=== PATIENT | female | born 1955 ===

== ENCOUNTER 2025-05-09 09:44 | Outpatient (AMB) | payer MEDICARE, OTHER, SELFPAY ==
--- OUTSIDE RECORDS SUMMARY | 2025-05-09 10:43 | XMS_ITS | Continuity of Care Document ---
Author Name [facility] Organization [facility] Care Team Providers Care Sky Diver Name Role Phone [facility] Unavailable Unavailable Immunizations Combined list of available immunizations from the Department of Defense and Veterans Affairs facilities. Immunization Series Date Given Administered By Site Reaction Lot Number CVX Code Drug Acquisitions Assistant Status Comments Source zoster recombinant 2023 () Not Given zoster recombina nt DoD COVID-19, mRNA, LNP-S, PF, 30 mcg/0.3 mL dose, otto-sucrose 2021 AFOLALU, () Not Given COVID-19, mRNA, LNP-S, PF, 30 mcg/0.3 mL dose, otto-sucr ose [facility] Influenza vaccine, quadrivalent, adjuvanted 2020 GLADIS, () Not Given Influenza vaccine, quadrival ent, adjuvante d [facility] pneumococcal polysaccharid e PPV23 2020 GALLEGO, () Not Given pneumococ lidya polysacch aride PPV23 [facility] influenza, high-dose, quadrivalent 2019 TRIGENIS, () Not Given influenza , high-dose , quadrival ent [facility] Social History Combined list of available smoking, tobacco, and other social history from Department of Defense and Veterans Affairs facilities. Social History Type Response Date Comment Sourc e This section is an empty social history section. DoD
--- OUTSIDE RECORDS SUMMARY | 2025-05-09 10:45 | XMS_ITS | Clinical Summary ---
Author Organization [facility] Address [address] [place] [address] Care Team Providers Care Meter Record Clerk Name Role Phone Meagan Drake RN Unavailable [phone] Pcp, No Primary Care Provider Unavailabl e Immunizations Immunization Administration Dates Next Due Covid-19 MRNA Vaccine - Pfiz er 12+ (Purple Cap) 06/27/2021,11/15/2020,10/25/2020 Social History Tobacco Use Types Packs/Day Years Used Date Smoking Tobacco: Never Assessed Comments Unknown Sex and Gender Information Value Date Recorded Sex Assigned at Not on file Legal Sex Female 6:18 PM EST Gender Identity Female 10/18/2020 6:25 PM EST Sexual Orientation Heterosexual (straight) 10/18 6:25 PM EST Plan of Treatment Health Maintenance Due Date Last Done Comments Advance Care Planning 1955 Hepatitis C Virus Screening 1955 DTaP/Tdap/Td Vaccines (1 - Tdap) 1973 Mammogram 1994 Colonoscopy 1999 Pneumococcal Vaccines 50+ (1 of 1 - PCV) 2004 Zoster (Shingles) Vaccine (1 of 2) 2004 DXA Bone Density (Females,Ages 65 and older) 2019 COVID-19 Vaccine (4 - 2023-2 5 season) 2024 06/27/2021, 11/15/2020, 10/25/2020 Influenza Vaccine 04/06/2025 07/20/2019 RSV Vaccine 60 years and older and Patients (1 - 1-dose 75+ series) 2029 Hepatitis B Vaccines Aged Out No long er eligible based on patient's age to complete this topic Insurance MEDICARE PART A & B [facility] Care Teams Meter Record Clerk Relationship Specialty Start Date End Date Pcp, No PCP - General General Medicine 04/27/22 Meagan Drake RN [address] [place] [address] Oncology Nurse Navigator 04/22/22
--- OUTSIDE RECORDS SUMMARY | 2025-05-09 10:45 | XMS_ITS | Clinical Summary ---
Author Organization [facility] Address [address] [facility] [place] [address] Care Team Providers Care Doctor Of Dental Surgery Name Role Phone Chelsey Moeller Primary Care Provider [phone] Allergies Active Allergy Reactions Criticality Noted Date Comments Adhesive Tape-Silicones Medium 03/01/2018 Other reaction(s): Other (See Comments) Paper tape and bandaids cause hives per pt Amoxicillin Clarithromycin Nausea And Vomiting Medium 06/01/2017 Erythromycin 12/29/2021 Other reaction(s): Other (See Comments) Sulfa (Sulfonamide Antibiotics) Hives Medium 02/12/2015 Medications alendronate (FOSAMAX) 70 mg tablet Take 70 mg by mouth every 7 days. 06/27/2020 Active ciprofloxacin (CIPRO) 500 mg tablet Active nitrofurantoin (MACRODANTIN) 100 mg capsule Activ e Lactobacillus acidophilus (PROBIOTIC ORAL) Take 1 capsule by mouth daily. Active cholecalciferol (VITAMIN D-3) 25 mcg (1,000 unit) tablet Take 1,000 Units by mouth daily. Active cyanocobalamin (VITAMIN B-12) 100 mcg tablet Take 0.5 tablets (50 mcg total) by mouth 1 (one) time each day. Active calcium carbonate (HIGH POTENCY CALCIUM PO) Take 1 tablet by mouth 1 (one) time each day. Active Active Problems Problem Noted Date Diagnosed Date Urinary tract infection 06/06/2022 Atypical nevi 09/08/2020 Osteoporosis 07/08/2019 Overview (10/09/2022): Followed by Andrzej. 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 ([facility] V24, [facility] V28) 05/30/2015 Encounters Date Type Department Care Team Description 05/01/2025 7:39 AM EDT - 05/01/2025 11:59 PM EDT Hospital Encounter [facility] [address] [place] [address] Malignant neoplasm of bladder, unspecified ([facility] V24, [facility] V28) Discharge Disposition: Home or Self Care from Last 3 Months Immunizations Name Administration Dates Next Due Influenza Quadrivalent, 0.5m l, preservative free (Fluarix; FluLaval; Fluzone) ages 6mo and older (Afluria) 3yo and older 07/20/2019 Pfizer (ages 12 & older) FRANK S-CoV-2 COVID-19, mRNA, LNP-S, otto-sucrose, preservative free 01/28/2022 Pfizer SARS-CoV-2 COVID-19, mRNA, LNP-S, preservative free 06/27/2021,11/15/2020,10/25/2020 Pneumococcal polysaccharide 23 valent (Pneumovax 23) 2yo and older 09/17/2020 Tdap Tetanus diptheria acell ular pertussis (Boostrix; Adacel) 7yo and older 11/02/2018 Surgical History Surgery Date Site/Laterality Comments BLADDER SURGERY PROCEDURE:BLADDER SURGERY OTHER SURGICAL HISTORY PROCEDURE:ruptured bladder HYSTERECTOMY PROCEDURE:HYSTERECTOMY TONSILLECTOMY PROCEDURE:TONSILLECTOMY COLONOSCOPY PROCEDURE:COLONOSCOPY ENDOMETRIAL ABLATION 01/2006 PROCEDURE:ENDOMETRIAL ABLATION;COMMENT:DUB BLADDER TUMOR EXCISION 11/09/2018 N/A PROCEDURE:BLADDER TUMOR EXCISION;COMMENT:Procedure: TRANSURETHRAL RESECTION BLADDER TUMOR; Surgeon: Марина Will MD; Location: [facility]; Service: Urology; Laterality: N/A; BLADDER TUMOR EXCISION 03/02/2018 N/A PROCEDURE:BLADDER TUMOR EXCISION;COMMENT:Procedure: TRANSURETHRAL RESECTION BLADDER TUMOR; Surgeon: Марина Will MD; Location: [facility]; Service: Urology; Laterality: N/A; BLADDER TUMOR EXCISION 06/30/2017 N/A PROCEDURE:BLADDER TUMOR EXCISION;COMMENT:Procedure: CYSTOSCOPY RESECTION BLADDER TUMOR; Surgeon: Марина Will MD; Location: [facility]; Service: Urology; Laterality: N/A; CYSTOSCOPY 08/09/2019 Bilateral PROCEDURE:CYSTOSCOPY;COMMENT:Proced ure: CYSTOSCOPY; Surgeon: Марина Will MD; Location: [facility]; Service: Urology; Laterality: Bilateral; BLADDER TUMOR EXCISION 08/09/2019 Bilateral PROCEDURE:BLADDER TUMOR EXCISION;COMMENT:Procedure: TRANSURETHRAL RESECTION BLADDER TUMOR; Surgeon: Марина Will MD; Location: [facility]; Service: Urology; Laterality: Bilateral; CYSTOSCOPY 08/09/2019 Bilateral PROCEDURE:CYSTOSCOPY;COMMENT:Proced ure: BILTERAL RETROGRADE PYELOGRAM; Surgeon: Марина Will MD; Location: [facility]; Service: Urology; Laterality: Bilateral; BLADDER TUMOR EXCISION 01/22/2021 N/A PROCEDURE:BLADDER TUMOR EXCISION;COMMENT:Procedure: TRANSURETHRAL RESECTION BLADDER TUMOR CYSTOSCOPY; Surgeon: Маирна Will MD; Location: [facility]; Service: Urology; Laterality: N/A; CYSTOSCOPY 01/22/2021 N/A PROCEDURE:CYSTOSCOPY;COMMENT:Proced ure: BILATERAL RETROGRADE PYELOGRAM; Surgeon: Марина Will MD; Location: [facility]; Service: Urology; Laterality: N/A; OVARIAN CYST REMOVAL 03/31/2023 N/A PROCEDURE:CYSTECTOMY;COMMENT:Proced ure: Radical CYSTECTOMY Ileal conduct, bilateral Plnd; Surgeon: Марина Will MD; Location: [facility]; Service: Urology; Laterality: N/A; BLADDER SURGERY PROCEDURE:BLADDER SURGERY;COMMENT:02/26 COLONOSCOPY 12/27/2023 N/A PROCEDURE:COLONOSCOPY;COMMENT:Proce dure: COLONOSCOPY; Surgeon: Cayetano Canseco DO; Location: [facility]; Service: Gastroenterology; Laterality: N/A; Medical History Medical History Date Comments PONV (postoperative nausea and vomiting) DX:PONV (postoperative nausea and vomiting) Cancer (CMS/HCC V24, CMS/HCC V28) DX:Cancer (HCC);COMMENT:bladder Migraine headache DX:Migraine he adache Urinary tract infection DX:Urina ry tract infection;COMMENT:remote per pt Uses contact lenses DX:Uses cont act lenses Visual impairment DX:Visual impa irment;COMMENT:glasses or contacts Cataract DX:Cataract Shingles DX:Shingles Family History Medical History Relation Name Comments Cancer Father Lung? Cause of age 60 Diabetes Father Hypertension Father Heart disease Maternal Grandfather Heart disease Maternal Grandmother Heart disease Mother No Known Problems Sister Relation Name Status Comments Father Maternal Grandfather Maternal Grandmother Mother Sister Social History Tobacco Use Types Packs/Day Years Used Date Smoking Tobacco: Never Smokeless Tobacco: Never Tobacco Cessation:Counseling Given: Not Answered Alcohol Use Standard Drinks/Week Comments Not Currently 0 (1 standard drink = 0.6 oz pur e alcohol) Comments Unknown Sex and Gender Information Value Date Recorded Sex Assigned at Female 05/01/2025 7:39 AM EDT Legal Sex Female 9:58 PM EST Gender Identity Female 05/01/2025 7:39 AM EDT Sexual Orientation Straight 05/01/2025 7: 39 AM EDT Obstetrics History Last Filed Vital Signs Vital Sign Reading Time Taken Comments Blood Pressure 110/72 12/07/2024 9:39 AM EDT Pulse 74 01/03/2024 10:30 AM EDT Temperature - - Respiratory Rate - - Oxygen Saturation - - Inhaled Oxygen Concentration - - Weight 49 kg (108 lb) 12/07/2024 9:39 AM EDT Height 147.3 cm (4' 10 ) 12/07/2024 9:39 AM EDT Body Mass Index 22.57 12/07/2024 9:39 AM EDT Plan of Treatment Upcoming Encounters Date Type Department Care Team (Late st Contact Info) Description 06/12/2025 9:00 AM EDT Office Visit [facility] [address] [facility] [address] [place] [address] Yessica Starr PA [address] [place] [address] Health Maintenance Due Date Last Done Comments Breast Cancer Screening 1955 Medicare Annual Wellness Visit 08/08/2022 Osteoporosis Screening (Bone Density Screening) 08/08/2022 Social Influencers of Health Screening 08/08/2022 Falls Risk Assessment 12/29/2022 12/29/2021 Colorectal Cancer Screening: Colonoscopy 09/06/2023 09/06/2013 Depression Screening 09/06/2024 12/29/2021 COVID-19 Vaccine ( season) 2025 07/02/2022, 01/28/2022, 06/27/2021, Additional history exists Influenza Vaccine (#1) 2025 , 06/18/2023, 07/02/2022, Additional history exists Cholesterol Screening (Lipid Panel) 12/17/2026 12/17/2021 RSV Immunization Adult Patients (1 - 1-dose 75+ series) 2029 DTaP,Tdap,and Td Vaccines (3 - Td or Tdap) 03/01/2035 03/01/2025, 11/02/2018 Hepatitis C Screening Completed 07/12/2020 Zoster Vaccines Completed 09/15/2023, 06/06, 06/06/2023 Pneumococcal Vaccine: 50+ Years Completed 07/20/2024, 09/17/2020 HIB Vaccines Aged Out No longer eligi ble based on patient's age to complete this topic HPV Vaccines Aged Out No longer eligi ble based on patient's age to complete this topic Hepatitis A Vaccines Aged Out No long er eligible based on patient's age to complete this topic Hepatitis B Vaccines Aged Out No long er eligible based on patient's age to complete this topic IPV Vaccines Aged Out No longer eligi ble based on patient's age to complete this topic MMR Vaccines Aged Out No longer eligi ble based on patient's age to complete this topic Meningococcal ACWY Vaccine Aged Out N o longer eligible based on patient's age to complete this topic Meningococcal B Vaccine Aged Out No l onger eligible based on patient's age to complete this topic RSV Immunization Patients Under 20 months Aged Out No longer eligible based on patient's age to complete this topic Varicella Vaccines Aged Out No longer eligible based on patient's age to complete this topic Medical Devices Implanted Type Area Street Flusher Driver Device Identifier Shelf Expiration Date Model / Serial / Lot Stent Universa Soft 6fr 26cm Monofilament Tether - [id number] Implanted:Qty: 1 on 01/22/2021 by Марина Will MD Left: Ureter [employer] 09/25/2023 [id number] / / [id number] Stent J Urinary 7fr X 90cm L F Single J Diversion [employer] Monik-Gyre [id number] Implanted:Qty: 1 on 03/31/2023 by Марина Will MD N/A: Ureter [employer] 06/22/2024 [id number] / / [id number] Procedures Procedure Name Priority Date/Time Associated Diagnosis Comments XR UROGRAM ANTEGRADE Routine 05/01/2025 9:46 AM EDT Malignant neoplasm of bladder, unspecified (CMS/HCC V24, CMS/HCC V28) DEPRESSION SCREENING Routine 12/29/2021 FALLS RISK ASSESSMENT Routine 12/29/2021 LIPID PANEL Routine 12/17/2021 HEPATITIS C SCREENING Routine 07/12/2020 COLONOSCOPY Routine 09/06/2013 from Last 3 Months or Most Recently Relevant to Health Maintenance Results * XR Urogram Antegrade (05/01/2025 9:46 AM EDT) Anatomical Region Laterality Modality Body Radiographic Elissa ging 05/01/2025 1:44 PM EDT Impressions 05/01/2025 2:21 PM EDT Normal loopogram. No interval change from 04/19/2024. -------- FINAL REPORT -------- Dictated By: Eliseo Salguero Dictated Date: 05/01/2025 13:44 ET Assigned Physician: Eliseo Salguero Reviewed and Electronically Signed By: Eliseo Salguero Signed Date: 05/01/2025 14:21 ET Workstation ID: [id number] Transcribed By: Self Edit Transcribed Date: 05/01/2025 13:44 ET Narrative 05/01/2025 2:21 PM EDT 05/01/2025. EXAM: Loopogram. HISTORY: Yearly follow-up. Status post radical cystectomy and creation of ileal conduit on 03/31/2023 for a malignant neoplasm of urinary bladder. COMPARISON: 04/19/2024. FINDINGS: AP hiv nurse images of abdomen performed in supine position show again normal- appearing bowel gas pattern and mild levoscoliosis of lumbar spine, unchanged. No mass, organomegaly or calcification seen. Surgical clips from previous radical cystectomy in pelvic cavity again noted. A loopogram was performed under fluoroscopy following retrograde introduction of about 100 mL of CYSTOGRAFIN into the ileal conduit via a Flynn catheter with balloon tip.. There was free retrograde flow of contrast from the conduit into the ureters and renal collecting systems without delay, leakage or obstruction. Renal collecting systems, both ureters and ileal conduit are again unremarkable without intraluminal filling defects, stricture, mass, leakage or obstruction Fluoroscopy time: 1.2 minutes. Fluoroscopy time: 1.2 minutes. Procedure Note Eliseo Salguero-MD Simeon - 05/01/2025 05/01/2025. EXAM: Loopogram. HISTORY: Yearly follow-up. Status post radical cystectomy and creation ofileal conduit on 03/31/2023 for a malignant neoplasm of urinary bladder. COMPARISON: 04/19/2024. FINDINGS: AP hiv nurse images of abdomen performed in supine position show againnormal- appearing bowel gas pattern and mild levoscoliosis of lumbar spine,unchanged. No mass, organomegaly or calcification seen. Surgical clipsfrom previous radical cystectomy in pelvic cavity again noted. A loopogram was performed under fluoroscopy following retrogradeintroduction of about 100 mL of CYSTOGRAFIN into the ileal conduit via aFoley catheter with balloon tip.. There was free retrograde flow of contrast from the conduit into theureters and renal collecting systems without delay, leakage orobstruction. Renal collecting systems, both ureters and ileal conduit are againunremarkable without intraluminal filling defects, stricture, mass,leakage or obstruction Fluoroscopy time: 1.2 minutes. Fluoroscopy time: 1.2 minutes. IMPRESSION: Normal loopogram. No interval change from 04/19/2024. -------- FINAL REPORT -------- Dictated By: Eliseo Salguero Dictated Date: 05/01/2025 13:44 ET Assigned Physician: Eliseo Salguero Reviewed and Electronically Signed By: Eliseo Salguero Signed Date: 05/01/2025 14:21 ET Workstation ID: [id number] Transcribed By: Self Edit Transcribed Date: 05/01/2025 13:44 ET Result [facility] Milton Will MD IMG FLUOROSCOPY PROCEDURES Fin al Result * Falls Risk Assessment (12/29/2021) [facility] Falls Risk Assessment abstracted Result [facility] Final Result * Depression Screening (12/29/2021) [facility] Depression Screening abstracted Result [facility] Final Result * (ABNORMAL) Lipid panel (12/17/2021) [facility] LDL/HDL Ratio 2.6 <=5 Triglycerides 54 <=150 mg/dL Cholesterol 206(A) <=200 mg/dL HDL 79 >=50 mg/dL LDL Cholesterol 113(A) <=100 mg/dL Blood Venous blood specimen / Unknown Result [facility] LAB BLOOD ORDERABLES Krista l Result * Hepatitis C Screening (07/12/2020) [facility] Hepatitis C Screening abstracted Result [facility] Final Result * Colonoscopy (09/06/2013) [facility] Colonoscopy no interpretation , abstracted Anatomical Region Laterality Modality Other us Historical Provider HEALTH MAINTENANCE Final Result from Last 3 Months or Most Recently Relevant to Health Maintenance Insurance MEDICARE [facility] MEDICARE [facility] MEDICARE Care Teams Doctor Of Dental Surgery Relationship Specialty Start Date End Date Chelsey Moeller PA [address] [place] [address] [place] [id number] PCP - General Internal Medicine 12/07/24
--- OUTSIDE RECORDS SUMMARY | 2025-05-09 10:45 | XMS_ITS | Clinical Summary ---
Author Organization [facility] Address [address] [place] [address] Care Team Providers Care Knitting Tester Name Role Phone Chelsey Moeller Primary Care Provider Allergies Active Allergy Reactions Criticality Noted Date Comments Adhesive Tape-Silicones Unknown Medium 03/01/2018 Paper tape and bandaids cause hives per pt Amoxicillin Hives,Unknown High 09/26/2022 Bacitracin Hives High 03/07/2025 Clarithromycin Nausea And Vomiting Medium 06/01/2017 Erythromycin Hives,Itching,Other (See Comments) High 12/29/2021 Other reaction(s): Other (See Comments) Sulfa (Sulfonamide Antibiotics) Hives High 02/12/2015 Medications ascorbic acid, vitamin C, (VITAMIN C) 1000 mg tablet Take 1 tablet (1,000 mg total) by mouth. Active cholecalciferol , vitamin D3, 25 mcg (1,000 unit) tablet Take 1 tablet (1,000 Units total) by mouth. Active cyanocobalamin 100 MCG tablet Take 0.5 tablets (50 mcg total) by mouth daily. Active Active Problems Problem Noted Date Diagnosed Date Rash 03/07/2025 Skin infection 03/01/2025 Encounters Date Type Department Care Team Description 03/07/2025 8:30 AM EDT Office Visit [facility] [address] [place] [address] Jose Villa PA Rash (Primary Dx) 03/01/2025 12:30 PM EDT Office Visit [facility] [address] [place] [address] Jose Villa PA Skin infection (Primary Dx) from Last 3 Months Immunizations Immunization Administration Dates Next Due Td (>7 yo), 5 Lf tetanus toxoid, PF, adsorbed Family History Relation Name Status Comments Father Maternal Grandfather Maternal Grandmother Mother Paternal Grandfather Paternal Grandmother Social History Tobacco Use Types Packs/Day Years Used Date Smoking Tobacco: Never Smokeless Tobacco: Never Tobacco Cessation:Counseling Given: Not Answered Alcohol Use Standard Drinks/Week Comments Yes 0 (1 standard drink = 0.6 oz pur e alcohol) occ Comments No Sex and Gender Information Value Date Recorded Sex Assigned at Not on file Legal Sex Female 12:00 PM EDT Gender Identity Not on file Sexual Orientation Not on file Last Filed Vital Signs Vital Sign Reading Time Taken Comments Blood Pressure 139/77 03/07/2025 8:29 AM EDT Pulse 71 03/07/2025 8:29 AM EDT Temperature 36.6 C (97.8 F) 03/07/2025 8:29 AM EDT Respiratory Rate 16 03/07/2025 8:29 AM EDT Oxygen Saturation 99% 03/07/2025 8:29 AM EDT Inhaled Oxygen Concentration - - Weight 48.5 kg (107 lb) 03/07/2025 8:29 AM EDT Height 147.3 cm (4' 10 ) 03/01/2025 12:19 PM EDT Body Mass Index 22.36 03/01/2025 12:19 PM EDT Plan of Treatment Health Maintenance Due Date Last Done Comments HIV screening 1967 Hepatitis C screening 1972 Breast cancer screening 1994 Lipid disorder screening 1994 Colon cancer screening, Colonoscopy 1999 Diabetes screening 1999 Osteoporosis screening (bone density) 2019 Pneumococcal Vaccine (50+ years) (2 of 2 - PCV) 09/17/2021 09/17/2020 Covid-19 vaccine series (5 - 2024- season) 2025 01/28/2022, 06/27/2021, 11/15/2020, Additional history exists Influenza vaccine 05/07/2025 08/05/2021, , 07/20/2019 RSV Immunization (1 - 1-dose 75+ series) 2029 Tetanus adult (Td q 10,TDAP once) 03/01/2035 03/01/2025, 11/02/2018 Shingles vaccine (Shingrix) Completed 09/15/2023, 1 Cervical cancer screening Discontinued Meningococcal B Vaccine Aged Out No l onger eligible based on patient's age to complete this topic Meningococcal Vaccine Aged Out No kalie doreen eligible based on patient's age to complete this topic Insurance MEDICARE [facility] [place] MEDICARE MEDICARE Care Teams Knitting Tester Relationship Specialty Start Date End Date Chelsey Moeller PA [address] [place] [phone] PCP - General 03/01/25
--- OUTSIDE RECORDS SUMMARY | 2025-05-09 10:45 | XMS_ITS ---
Author Organization [facility] Address [address] [place] [address] Care Team Providers Care Professional Wrestler Name Role Phone Chelsey Moeller Primary Care Provider [phone] Active Problems Problem Noted Date Diagnosed Date Urinary tract infection 06/06/2022 Atypical nevi 09/08/2020 Osteoporosis 07/08/2019 Overview (10/09/2022): Followed by Endo. 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 Past Plans No past plan information found. Radiation Treatments * No radiation treatments are documented for this patient in [facility]. Treatments may have been administered in another system. Lifetime Dose Tracking * Chemical Lifetime Dose Automatic Entry Manual Entr y Fluoro Time 1.2 minutes 1.2 minutes 0 minutes Air Kerma 11.2 mGy 11.2 mGy 0 mGy
--- OUTSIDE RECORDS SUMMARY | 2025-05-09 10:47 | XMS_ITS ---
Author Organization [facility] Address [address] [place] [address] Care Team Providers Care Manufacturing Process Technician Name Role Phone Chelsey Moeller Primary Care Provider [phone] Active Problems Problem Noted Date Diagnosed Date Malignant neoplasm of urinary bladder 05/25/2022 Overview (05/25/2022): Added automatically from request for surgery [id number] Current Treatment and Therapy Plans No current plan information found. Past Treatment and Therapy Plans No past plan information found. Lifetime Dose Tracking * Chemical Lifetime Dose Automatic Entry Manual Entr y Radiation (DLP) 649 mGy-cm 649 mGy-cm 0 mGy-cm CTDIvol min 10 mGy 10 mGy 0 mGy CTDIvol max 10 mGy 10 mGy 0 mGy CXFO420 3.6 mSv 3.6 mSv 0 mSv
--- OUTSIDE RECORDS SUMMARY | 2025-05-09 10:47 | XMS_ITS | Clinical Summary ---
Author Organization [facility] Address [address] [place] [address] Care Team Providers Care Boiler Reliner Name Role Phone Chelsey Moeller Primary Care Provider [phone] Allergies Active Allergy Reactions Criticality Noted Date Comments Adhesive Tape-Silicones Hives Medium 03/01/2018 Paper tape and bandaids cause hives per pt Amoxicillin Hives 09/26/2022 Clarithromycin Nausea And Vomiting Medium 06/01/2017 Erythromycin Hives,Other (see comments) 12/29/2021 Sulfa (Sulfonamide Antibiotics) 05/19/2022 Other reaction(s): Hives Medications alendronate (FOSAMAX) 70 mg tablet every 7 days. 0 Active cholecalciferol , vitamin D3, 25 mcg (1,000 unit) tablet Take 1,000 Units by mouth in the morning. Active mirabegron (Myrbetriq) 25 mg tablet extended release 24 hr every other day. 1 Active vibegron (Gemtesa) 75 mg tablet every other day. 1 Active phenazopyridine (PYRIDIUM) 200 mg tablet TAKE 1 TABLET BY MOUTH THREE TIMES DAILY NEEDED BLADDER SPAMS URINARY DISCOMFORT 10 tablet 1 2 Active Additional Information Patient not taking.Reported on 09/11/2022 Active Problems Problem Noted Date Diagnosed Date Malignant neoplasm of urinary bladder 05/25/2022 Overview (05/25/2022): Added automatically from request for surgery [id number] Social History Tobacco Use Types Packs/Day Years Used Date Smoking Tobacco: Never Smokeless Tobacco: Never Alcohol Use Standard Drinks/Week Comments Never 0 (1 standard drink = 0.6 oz pur e alcohol) Comments No Sex and Gender Information Value Date Recorded Sex Assigned at Not on file Legal Sex Female 9:48 AM EDT Gender Identity Not on file Sexual Orientation Not on file Last Filed Vital Signs Vital Sign Reading Time Taken Comments Blood Pressure 125/68 09/26/2022 6:04 PM EST Pulse 88 09/26/2022 6:04 PM EST Temperature 37.6 C (99.7 F) 09/26/2022 2:42 PM EST Respiratory Rate 18 09/26/2022 6:04 PM EST Oxygen Saturation 96% 09/26/2022 6:04 PM EST Inhaled Oxygen Concentration - - Weight 48.5 kg (107 lb) 09/26/2022 9:41 AM EST Height 147.3 cm (4' 10 ) 09/26/2022 9:41 AM EST Body Mass Index 22.36 09/26/2022 9:41 AM EST Plan of Treatment Health Maintenance Due Date Last Done Comments Bone Density Screening 1954 Breast Cancer Screening 1954 CT Colonography 1954 Colonoscopy 1954 Colorectal Cancer Screening 1954 FIT-DNA (Cologuard) 1954 FIT 1954 FOBT 1954 Flex Sigmoidoscopy - 5y 1954 HIV Screening 1954 Hepatitis C Screening 1972 Medicare Annual Wellness (AWV) 06/07/2021 06/06/2020 Pneumococcal Vaccine, 50+ Years (2 of 2 - PCV) 09/17/2021 09/17/2020 COVID-19 Vaccine ( - 2024- season) 2025 07/02/2022, 01/28/2022, 06/27/2021, Additional history exists Influenza Vaccine (#1) 2025 , 08/05/2021, 07/22/2020, Additional history exists DTaP,Tdap,and Td Vaccines (2 - Td or Tdap) 11/02/2028 11/02/2018 Zoster Vaccines Completed 09/15/2023, 06/06/2023 HPV Vaccines Aged Out No longer eligi ble based on patient's age to complete this topic Hepatitis A Vaccines Aged Out No long er eligible based on patient's age to complete this topic Meningococcal Vaccine Aged Out No kalie doreen eligible based on patient's age to complete this topic Insurance MEDICARE PART A & B FOR [email or web address] Advance Directives For more information, please contact: [phone] Documents on File Type Date Recorded Patient Fire [employer] Advance Directives 06/04/2022 11:58 AM Care Teams Boiler Reliner Relationship Specialty Start Date End Date Chesley Moeller PA PCP - General Internal Medicine 09/26/22
--- OUTSIDE RECORDS SUMMARY | 2025-05-09 10:47 | XMS_ITS | Clinical Summary ---
Author Organization [facility] Address [address] [place] [address] Care Team Providers Care Chemical Dependency Counselor Name Role Phone Chelsey Moeller PA-C Primary Care Provider Allergies Active Allergy Reactions Criticality Noted Date Comments Adhesive Tape Other (See Comments) Medium 03/01/2018 Paper tape and bandaids cause hives per pt Amoxicillin Hives Medium 09/26/2022 Clarithromycin Nausea And Vomiting Medium 06/01/2017 Erythromycin Hives,Itching Medium 12/29/2021 Sulfa Antibiotics Hives Medium 02/12/2015 Medications Medication Sig Dispensed Refills Start Date End Date Status vitamin D3 (VITAMIN D3) 25 MCG (1000 UT) tablet Take 1 tablet (1,000 Units total) by mouth daily. 0 Active vitamin B-12 (CYANOCOBALAMIN) 100 MCG tablet Take 0.5 tablets (50 mcg total) by mouth daily. 0 Active Ascorbic Acid (vitamin C) 1000 MG tablet Take 1 tablet (1,000 mg total) by mouth daily. 0 Active Calcium Carbonate-Vit D-Min (CALCIUM 1200 PO) Take by mouth. 0 Active Active Problems Problem Noted Date Diagnosed Date Presence of urostomy 01/03/2024 Special screening for malignant neoplasms, colon 12/13/2023 History of herpes zoster 10/202212/31/2022 Vitamin D deficiency 08/17/2022 Complicated UTI (urinary tract infection) 2021 UTI (urinary tract infection) 06/06/2022 Atypical nevi 09/08/2020 Age related osteoporosis 07/08/2019 Overview: Followed by Andrzej. 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 Cause of age 60 Diabetes Father Hypertension Father Heart disease Maternal Grandfather Heart disease Maternal Grandmother Heart disease Mother No Sig Med Hx Sister Relation Name Status Comments Father Maternal Grandfather Maternal Grandmother Mother Sister Social History Tobacco Use Types Packs/Day Years Used Date Smoking Tobacco: Never Smokeless Tobacco: Never Tobacco Cessation:Counseling Given: Not Answered Alcohol Use Standard Drinks/Week Comments Not Currently 0 (1 standard drink = 0.6 oz pur e alcohol) rarely Overall Financial Resource Strain (CARDIA) Answe r Date Recorded How hard is it for you to pa y for the very basics like food, housing, medical care, and heating? Not hard at all 04/07/2023 Hunger Vital Sign Answer Date Recorded Within the past 12 months, y ou worried that your food would run out before you got the money to buy more. Never true 04/07/20 23 Within the past 12 months, t he food you bought just didn't last and you didn't have money to get more. Never true 04/07/2023 PRAPARE - Transportation Answer Date Re corded In the past 12 months, has l ack of transportation kept you from medical appointments or from getting medications? No 10/2022 In the past 12 months, has l ack of transportation kept you from meetings, work, or from getting things needed for daily living? No 04/07/2023 Housing Stability Vital Sign Answer Haresh e Recorded In the last 12 months, was t here a time when you were not able to pay the mortgage or rent on time? No 04/07/2023 In the last 12 months, how many places have you lived? 1 04/07/2023 In the last 12 months, was t here a time when you did not have a steady place to sleep or slept in a penitentiary (including now)? No 04/07/2023 Sex and Gender Information Value Date Recorded Sex Assigned at Female 10/26/2018 9:48 AM EST Gender Identity Female 11/09/2018 7:27 AM EST Sexual Orientation Not on file Job Start Date Occupation Industry Not on file Not on file Not on file Last Filed Vital Signs Vital Sign Reading Time Taken Comments Blood Pressure 124/66 03/16/2024 12:56 PM EDT Pulse 74 01/03/2024 10:30 AM EDT Temperature 36.2 C (97.2 F) 01/03/2024 10:30 AM EDT Respiratory Rate 18 12/27/2023 8:25 AM EDT Oxygen Saturation 98% 01/03/2024 10:30 AM EDT Inhaled Oxygen Concentration - - Weight 47.6 kg (105 lb) 03/16/2024 12:56 PM EDT Height 148.6 cm (4' 10.5 ) 03/16/2024 12:56 PM E DT Body Mass Index 21.57 03/16/2024 12:56 PM EDT Plan of Treatment Health Maintenance Due Date Last Done Comments Pneumococcal Vaccine (2 of 2 - PCV) 09/17/2021 09/17/2020 Breast Cancer Screening (Mammogram) 04/29/2022 04/29/2020 COVID-19 Vaccine (5 - season) 2024 01/28/2022, 06/27/2021, 11/15/2020, Additional history exists Depression Screening 01/02/2025 01/03/2024, 12/31/2022, 12/29/2021, Additional history exists Fall Risk Assessment 01/02/2025 01/03/2024, 12/31/2022, 12/29/2021, Additional history exists Preventative Health Evaluation 01/02/2025 01/03/2024, 12/29/2021, 09/08/2020, Additional history exists Influenza Vaccine (#1) 2025 , 07/22/2020, 07/20/2019 Osteoporosis Screening (DEXA Scan) 08/12/2025 08/12/2023, 12/29/2021 (Pt Reported - Need documentation), 04/06/2019 DTap / Tdap / Td (2 - Td or Tdap) 11/02/2028 11/02/2018 RSV Adult > 60+ Yrs or (1 - 1-dose 75+ series) 2029 Colon Cancer Screening (Colonoscopy) 12/26/2033 12/27/2023, 09/06/2013 Hepatitis C Screening Completed 07/11/2020 BMI Counseling Discontinued 03/05/2023, 05/2022, 09/08/2020, Additional history exists Shingrix-Zoster Vaccine Completed 09/15/2023, 06/06 Hepatitis B Vaccines Aged Out No long er eligible based on patient's age to complete this topic RSV Ped < 20 months Aged Out No longe r eligible based on patient's age to complete this topic Medical Devices Implanted Type Area Delinquent Notice Machine Operator Device Identifier Shelf Expiration Date Model / Serial / Lot Stent Universa Soft 6fr 26cm Monofilament Tether - [id number] - [id number] Implanted:Qty: 1 on 01/22/2021 [place]а [place] [facility] [place]: Ureter [employer] 09/25/2023 [id number] / / [id number] Stent J Urinary 7fr X 90cm L F Single J Diversion Specialty Monik-Gyre [id number] - [id number] Implanted:Qty: 1 on 03/31/2023 by Марина [place] [facility] [place] [facility] [place] N/A: Ureter [employer] 06/22/2024 [id number] / / [id number] Explanted Type Area Delinquent Notice Machine Operator Device Identifier Shelf Expiration Date Model / Serial / Lot Catheter 70cm 5fr 8fr Cone Tip Soft Smooth Terminol Eye - [id number] - [id number] Explanted:Qty : 1 on 08/09/2019 by Марина Will [place] [facility] [place] [facility] [place] Bilateral Anterior: Ureter [employer] 11/01/2020 [id number] / / [id number] Catheter 70cm 5fr 8fr Cone Tip Soft Smooth Terminol Eye - [id number] - [id number] Explanted:Qty : 1 on [place]/22/2021 [place] [facility] [place] [facility] [place] [employer] 10/07/2023 [id number] / / [id number] Description:Removed intact Adriana,Shamika M Personal/Famil y Self 1955 [address] [facility] Adriana,Shamika M Personal/Famil y Self 1955 [address] [facility] [place] [address] Adriana,Shamika M Personal/Famil y Self 1955 [address] [facility] [place] [address] Adriana,Shamika M Personal/Famil y Self 1955 [address] [id number] Advance Directives For more information, please contact: [phone] Latest Code Status on File Code Status Date Activated Date Inactivated Comments Full Code 12/26/2023 12:21 PM 12/27/2023 3:31 PM This code status was ascertained in the following way: discussion with patient . Code Status History Code Status Date Activated Date Inactivated Comments Full Code 03/31/2023 8:10 AM 04/06/2023 7:51 PM This c ode status was ascertained in the following way: discussion with patient . Full Code 03/31/2023 7:48 AM 03/31/2023 8:10 AM This code status was ascertained in the following way: discussion with patient . Full Code 06/06/2022 3:50 AM 06/07/2022 12:15 AM This code status was ascertained in the following way: discussion with patient . Full Code 01/22/2021 11:13 AM 01/23/2021 4:38 PM This code status was ascertained in the following way: discussion with patient . Care Teams Chemical Dependency Counselor Relationship Specialty Start Date End Date Chelsey Moeller PA-C PCP - General Store Specialist 05/18/17
--- OUTSIDE RECORDS SUMMARY | 2025-05-09 10:48 | XMS_ITS | Clinical Summary ---
Author Organization [facility] Address [address] [place] [address] Phone Care Team Providers Care Cancer Genetic Counselor Name Role Phone Chelsey Moeller Primary Care Provider [phone] Self-Referred, Patient Unavailable Unavailab Marcos Conroy MD, MPH Unavailable [phone] Social History Tobacco Use Types Packs/Day Years Used Date Smoking Tobacco: Never Assessed Education Answer Date Recorded Are you interested in more education? Not on grayson e 12/31/2022 Are you concerned about learning? Not on file 12/31/2022 No 12/31/2022 No 12/31/2022 Digital Access Answer Date Recorded No 01/31/2023 No 01/31/2023 No 01/31/2023 Reliable internet access at home? Not on file 01/31/2023 Device with a working camera? Not on file Comments Unknown Sex and Gender Information Value Date Recorded Sex Assigned at Female 05/13/2022 11:36 AM EDT Legal Sex Female 11:21 AM EDT Gender Identity Female 05/13/2022 11:36 AM EDT Sexual Orientation Straight 05/13/2022 11 :36 AM EDT Last Filed Vital Signs Vital Sign Reading Time Taken Comments Blood Pressure 133/77 05/21/2022 4:49 PM EDT Pulse 84 05/21/2022 4:49 PM EDT Temperature 36.4 C (97.6 F) 05/21/2022 4:49 PM EDT Respiratory Rate 16 05/21/2022 4:49 PM EDT Oxygen Saturation 98% 05/21/2022 4:49 PM EDT Inhaled Oxygen Concentration - - Weight 48.7 kg (107 lb 5.8 oz) 05/21/2022 4:48 P M EDT Height 146.6 cm (4' 9.72 ) 05/21/2022 4:48 PM ED T Body Mass Index 22.66 05/21/2022 4:48 PM EDT Plan of Treatment Health Maintenance Due Date Last Done Comments LIPID PANEL 1954 DEPRESSION SCREENING 1966 SMOKING Hx and SMOKELESS TOBACCO SCREENING 1967 HEPATITIS C SCREENING 1972 MAMMOGRAM 1994 COLOGUARD 1999 COLONOSCOPY 1999 COLORECTAL CANCER SCREENING 1999 FIT TEST 1999 FOBT 1999 SIGMOIDOSCOPY 1999 VIRTUAL COLONOSCOPY 1999 ZOSTER VACCINES (1 of 2) 2004 OSTEOPOROSIS SCREENING INITI AL (ONE-TIME) 2019 PNEUMOCOCCAL VACCINES (50+ years) (2 of 2 - PCV) 09/17/2021 09/17/2020 COVID-19 VACCINE (4 - 2023-2 5 season) 2024 06/27/2021, 11/15/2020, 10/25/2020 INFLUENZA VACCINE (#1) 2025 9, 10/01/2017 Adult Td,Tdap Booster 11/02/2028 11/02/2018 RSV VACCINE (1 - 1-dose 75+ series) 2029 HEPATITIS A VACCINES Aged Out No long er eligible based on patient's age to complete this topic HIB VACCINES Aged Out No longer eligi ble based on patient's age to complete this topic MENINGOCOCCAL VACCINES (ACWY) Aged Out No longer eligible based on patient's age to complete this topic MENINGOCOCCAL VACCINES (B) Aged Out N o longer eligible based on patient's age to complete this topic Medical Devices Not on file Insurance MEDICARE PART A & B FOR LIFE MEDICARE SUPPLEMENT MEDICARE PART A & B FOR LIFE MEDICARE SUPPLEMENT MEDICARE PART A & B [facility] MEDICARE SUPPLEMENT MEDICARE PART A & B FOR LIFE MEDICARE SUPPLEMENT MEDICARE PART A & B FOR LIFE MEDICARE SUPPLEMENT MEDICARE PART A & B FOR [employer] MEDICARE SUPPLEMENT MEDICARE PART A & B FOR LIFE MEDICARE SUPPLEMENT MEDICARE PART A & B [facility] MEDICARE SUPPLEMENT MEDICARE PART A & B FOR LIFE MEDICARE SUPPLEMENT Care Teams Cancer Genetic Counselor Relationship Specialty Start Date End Date Chelsey Moeller PA [address] [place] [id number] PCP - General 05/13/22 Self-Referred, Patient 05/13/22 Marcos Dobson MD, MPH [address] [place] [id number] [email or web address] 05/14/22 Additional Source Comments The information contained in this document represents components of the legal health record. It is not the complete legal health record.[facility]
== END 2025-05-09 09:54 | disposition home or self-care (01) ==
LOC: HO.HMGAL 09:44
PROVIDERS: Visit Provider Registered Nurse Emergency
DX: J30.89 Other allergic rhinitis (principal)
CPT/HCPCS: 95117; 95165